=== PATIENT | male | born 2000 | race Caucasian/White ===

== ENCOUNTER 2019-04-23 15:20 | Emergency (ER) | payer MEDICAID ==
[~2019-04-23] VITALS: Ht 182.9 cm; Wt 72.3 kg
[2019-04-23 15:23] VITALS: BP 118/73
== END 2019-04-23 15:51 | disposition home or self-care (01) ==
LOC: ER 15:20
DX: S93.691A Other sprain of right foot, initial encounter (principal); W01.0XXA Fall on same level from slipping, tripping and stumbling without subsequent striking against object, initial encounter; Y93.89 Activity, other specified; Y92.89 Other specified places as the place of occurrence of the external cause; Y99.8 Other external cause status
CPT/HCPCS: 73630; 99283

== ENCOUNTER 2020-01-10 08:48 | Emergency (ER) | payer MEDICAID ==
[~2020-01-10] VITALS: Ht 180.3 cm; Wt 63.6 kg
[2020-01-10 09:15] VITALS: BP 128/80
[2020-01-10] MEDS ORDERED: ibuprofen tablet 400 MG TABLET PO ONE (11:05)
[2020-01-10] MEDS ORDERED: LIDOcaine 5% patch TP STA (11:05)
== END 2020-01-10 11:32 | disposition home or self-care (01) ==
LOC: ER 08:48
DX: M94.0 Chondrocostal junction syndrome [Tietze] (principal)
CPT/HCPCS: 71100; 99283

== ENCOUNTER 2024-08-06 19:59 | Emergency (ER) | payer MEDICAID ==
[~2024-08-06] VITALS: Ht 182.9 cm; Wt 83.4 kg
[2024-08-06 20:59] VITALS: BP 118/80; PULSE 85; RESP 16; TEMP 98.6; O2SAT 99
== END 2024-08-06 21:00 | disposition home or self-care (01) ==
LOC: ER 20:00
DX: S60.455A Superficial foreign body of left ring finger, initial encounter (principal); W49.04XA Ring or other jewelry causing external constriction, initial encounter; Y93.89 Activity, other specified; Y92.89 Other specified places as the place of occurrence of the external cause; Y99.8 Other external cause status
CPT/HCPCS: 99284